=== PATIENT | male | born 1990 | race Two or more races ===

== ENCOUNTER 2019-09-27 14:36 | Emergency (ER) | payer SELFPAY ==
--- NOTE | 2019-09-27 15:34 | ER Document Report ---
ED Medical Screen (RME) - General Chief Complaint: Eye Pain Stated Complaint: EYE IRRITATION,HEADACHE Time Seen by Provider: 09/27/19 15:30 Mode of Arrival: Ambulatory Information source: Patient Notes: 28-year-old male presented to ED for complaint of redness pressure pain to the right eye. He states now he has a headache to the right side of his head. He states he tried to get into several eye doctors and he could not get in. He states the pain started yesterday. He is alert oriented respirations regular nonlabored speaking in full sentences. He does wear eye contacts and he took them out 2 days ago because he ran out of contacts so he has been wearing glasses for the since day before yesterday the eye pain started yesterday. 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 I have greeted and performed a rapid initial assessment of this patient. A comprehensive ED assessment and evaluation of the patient, analysis of test results and completion of medical decision making process will be conducted by an additional ED providers. Physical Exam - Vital signs Vitals: Temp Pulse Resp BP Pulse Ox 98.8 F 97 20 156/104 H 96 09/27/19 14:42 09/27/19 14:42 09/27/19 14:42 09/27/19 14:42 09/27/19 14:42 Course - Vital Signs Vital signs: Temp Pulse Resp BP Pulse Ox 98.8 F 97 20 156/104 H 96 09/27/19 14:42 09/27/19 14:42 09/27/19 14:42 09/27/19 14:42 09/27/19 14:42
[2019-09-27] MEDS ORDERED: TETRACAINE HCL 0.5% OPH SOLN 4 ML OS ONE (17:27)
--- NOTE | 2019-09-27 17:40 | ER Document Report ---
HPI - HPI Time Seen by Provider: 09/27/19 15:30 Pain Level: 4 Notes: Patient is a 28-year-old male with no significant past medical history presents complaining of having right eye irritation that began yesterday. Patient states that he has been waking up with matting of his eyes and drainage while noticing eye redness. Patient states that the worst of it was this morning. He was wearing his contacts prior and stopped wearing them because of the irritation. Patient states that he does have some light sensitivity and some mild pain to the right side of his head. 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 He does wear eye protection. Denies any fever, neck pain, changes in speech/mentation/hearing, URI, sore throat, chest pain, palpitations, syncope, cough, shortness of breath, wheeze, dyspnea, abdominal pain, nausea/vomiting/diarrhea, urinary retention, dysuria, hematuria, loss of control of bowel or bladder, numbness/tingling, saddle anesthesia, muscle paralysis/weakness, or rash. - ROS Systems Reviewed and Negative: Yes All other systems reviewed and negative - CONSTITUTIONAL Constitutional: DENIES: Fever, Chills - NEURO Neurology: REPORTS: Headache. DENIES: Weakness, Vision blurred, Dizzinesss / Vertigo - REPRODUCTIVE Reproductive: DENIES: : Past Medical History - General Information source: Patient - Social History Smoking Status: Never Smoker Chew tobacco use (# tins/day): No Frequency of alcohol use: Rare Drug Abuse: None Family History: Reviewed & Not Pertinent Patient has suicidal ideation: No Patient has homicidal ideation: No Vertical Provider Document - CONSTITUTIONAL Agree With Documented VS: Yes Notes: PHYSICAL EXAMINATION: GENERAL: Well-appearing, well-nourished and in no acute distress. A&Ox4 HEAD: Atraumatic, normocephalic. EYES: Pupils equal round and reactive to light, extraocular movements intact, sclera anicteric, Rt conjunctiva is injected with scant discharge. Non-tender to palp of the globe and eye itself. No surrounding erythema or swelling noted. Wood's lamp/flourescein: + small rt corneal ulcer noted at 11 o'clock position. No abrasion, laceration, or deysi sign noted. No obvious foreign body appreciated or rust ring. Tonometry: pressure of 18. ENT: Nares patent and without discharge. oropharynx clear without exudates. No tonsilar hypertrophy or erythema. Moist mucous membranes. No sinus tenderness. Uvula midline. No palatine shift. No airway compromise. No drooling or hoarseness. NECK: Normal range of motion, supple without lymphadenopathy. No rigidity/meningismus. LUNGS: Breath sounds clear to auscultation bilaterally and equal. No wheezes rales or rhonchi. HEART: Regular rate and rhythm without murmurs, rubs, gallops. Musculoskeletal: Ext b/l: FROM to passive/active. Strength 5+/5. Extremities: No cyanosis, clubbing, or edema b/l. Peripheral pulses 2+. Capillary refill less than 3 seconds. NEUROLOGICAL: Cranial nerves grossly intact. Normal speech, normal gait. PSYCH: Normal mood, normal affect. SKIN: Warm, Dry, normal turgor, no rashes or lesions noted. - INFECTION CONTROL TRAVEL OUTSIDE OF THE [place] IN LAST 30 DAYS: No Course - Re-evaluation Re-evalutation: 09/27/19 18:01 Patient is an afebrile, well-hydrated, 28-year-old male who presents to the emergency department with corneal ulcer rt eye. Vitals are acceptable without significant tachycardia, tachypnea, or hypoxia. PE is otherwise unremarkable. Tonometry wnl. See eye exam. Patient is nontoxic-appearing and is able to tolerate p.o. without difficulty. No labs or imaging warranted. Low suspicion for any retained corneal or lid foreign body, deep space infection including orbital cellulitis/abscess, acute glaucoma, penetrating globe injury, retinal detachment, meningitis, sepsis, fracture, compartment syndrome. I will send home with a prescription for cipro drogs to use as directed. Conservative haleigh sures otherwise for symptoms with proper handwashing. Recheck with your PCM in 3-5 days. Schedule follow-up with ophthalmology this week. Return to the ED with any worsening/concerning symptoms otherwise as reviewed in discharge. Patient is in agreement. - Vital Signs Vital signs: Temp Pulse Resp BP Pulse Ox 98.8 F 97 20 142/85 H 96 09/27/19 14:42 09/27/19 14:42 09/27/19 14:42 09/27/19 15:37 09/27/19 14:42 Procedures - Eye Procedure Right Eye Irrigated w/ Saline (ccs): 20 Alcaine Drops Administered: Yes - tetracaine Fluorescein applied: Right Discharge - Discharge Clinical Impression: Corneal ulcer, right Condition: Stable Disposition: HOME, SELF-CARE Instructions: Corneal Ulceration ([facility]) Additional Instructions: Keep eyes clean Avoid scratching/touching eyes Wash hands regularly Use eye drops as directed Throw away your contact lenses and do not use new ones for at least 2 weeks Maintain adequate fluid intake tylenol/ibuprofen as needed over the counter cold medication as needed for symptoms F/u: with your PCM in 2-3 days for a recheck Schedule an appointment with ophthalmology for further evaluation and management Return to the ED with any worsening symptoms and/or development of fever, headache, changes in vision, eye pain, worsening eye redness, redness around the eyes, purulent discharge, sore throat, facial swelling, neck pain/stiffness, chest pain, palpitations, syncope, shortness of breath, trouble breathing, abdominal pain, n/v/d, blood in stool/urine, dysuria, or other worsening symptoms that are concerning to you. Prescriptions: Ciprofloxacin HCl [Ciloxan 0.3% Oph Ointment 3.5 gm] 1 applic OP ASDIR #1 tube Forms: Elevated Blood Pressure Referrals: YARI CHINCHILLA MD [ACTIVE STAFF] - 09/29/19
[2019-09-27 18:16] VITALS: BP 151/92
== END 2019-09-27 18:21 | disposition home or self-care (01) ==
LOC: ER 14:36
DX: H16.001 Unspecified corneal ulcer, right eye (principal)
CPT/HCPCS: 99282; J3490

== ENCOUNTER 2019-09-28 21:50 | Emergency (ER) | payer SELFPAY ==
[2019-09-28] MEDS ORDERED: TETRACAINE HCL 0.5% OPH SOLN 4 ML OD ONE (22:53)
--- NOTE | 2019-09-28 22:54 | ER Document Report ---
ED Medical Screen (RME) - General Chief Complaint: Eye Injury Stated Complaint: REDNESS OF EYE,BLURRINESS Primary Care Provider: BENJY LOVE JR, MD [Primary Care Provider] - Follow up as needed Notes: Patient is a 28-year-old male with past medical history of morbid obesity was seen here recently and diagnosed with a right corneal abrasion placed on Cipro drops who returns today with a worsening right eye. He does report in the past that he had increased IOP in the right eye. States the eye is painful, decreased blurry vision and surrounded with redness. He is been using the drops as previously prescribed. Denies any blunt injury or trauma to the eye. TRAVEL OUTSIDE OF THE [place] IN LAST 30 DAYS: No - Related Data Allergies/Adverse Reactions: Penicillins Allergy (Unknown, Verified 09/28/19 22:45) Home Medications: CIPRO Physical Exam - Vital signs Vitals: Temp Pulse Resp BP Pulse Ox 99.5 F 110 H 20 185/76 H 96 09/28/19 22:05 09/28/19 22:05 09/28/19 22:05 09/28/19 22:05 09/28/19 22:05 Course - Vital Signs Vital signs: Temp Pulse Resp BP Pulse Ox 99.5 F 110 H 20 185/76 H 96 09/28/19 22:05 09/28/19 22:05 09/28/19 22:05 09/28/19 22:05 09/28/19 22:05 Doctor's Discharge - Discharge Referrals: BENJY LOVE JR, MD [Primary Care Provider] - Follow up as needed
[2019-09-29] MEDS ORDERED: KETOROLAC TROMETHAMINE 0.45% 4 DROP/0.4 ML DROPERETTE OD ONE (01:40)
[2019-09-29] MEDS ORDERED: KETOROLAC TROMETHAMINE 60 MG/2 ML SDV IM ONE (01:55)
--- NOTE | 2019-09-29 01:59 | ER Document Report ---
ED General - General Chief Complaint: Eye Injury Stated Complaint: REDNESS OF EYE,BLURRINESS Time Seen by Provider: 09/29/19 00:39 Primary Care Provider: BENJY LOVE JR, MD [ACTIVE STAFF] - Follow up as needed Notes: 28-year-old male presents emergency department complaining of right eye pain and blurry vision. Patient states that 2 days ago he tried new colored contacts that he ordered online and when he put them and they were somewhat painful and they ripped so he tried it again and when he woke up the next morning after having taken out his contacts his right eye was red and had crusting and discharge. Patient stated that it was quite painful and hurt worse with direct light. Patient was seen here yesterday, diagnosed with a corneal abrasion and treated with ciprofloxacin drops. Patient states that the drops burned when he put them in and his pain has gotten progressively worse. Patient states that now his vision is blurry as well and he feels like there is a smudge in his vision. He has not worn the contacts again. Denies any specific foreign body to the eye although he did have a foreign body sensation which has since resolved. Patient also complains of a right-sided temporal headache that he states feels worse when you touch it gently but feels better when you apply significant pressure to his right quaker. TRAVEL OUTSIDE OF THE [place] IN LAST 30 DAYS: No - Related Data Allergies/Adverse Reactions: Penicillins Allergy (Unknown, Verified 09/28/19 22:45) Home Medications: CIPRO Past Medical History - General Information source: Patient - Social History Smoking Status: Former Smoker Frequency of alcohol use: None Drug Abuse: None Family History: DM, Hypertension Patient has suicidal ideation: No Patient has homicidal ideation: No Review of Systems - Review of Systems Constitutional: No symptoms reported EENT: See HPI Cardiovascular: No symptoms reported Neurological/Psychological: See HPI, Headaches -: Yes All other systems reviewed and negative Physical Exam - Vital signs Vitals: Temp Pulse Resp BP Pulse Ox 99.5 F 110 H 20 185/76 H 96 09/28/19 22:05 09/28/19 22:05 09/28/19 22:05 09/28/19 22:05 09/28/19 22:05 Interpretation: Hypertensive, Tachycardic - Notes Notes: GENERAL: Alert, interacts well. Lying in the dark, appears uncomfortable. HEAD: Normocephalic, atraumatic. Tender palpation across the right quaker, temporal artery is not inflamed, there is no tenderness further back on his head, there is no vesicular rash, no evidence of shingles. EYES: Pupils equal, round and reactive to light, extraocular movements intact. Pain with light shined into either eye, the pain is only present in the right eye. Markedly injected conjunctiva bilaterally however right is greater than left, slit-lamp examination of the right eye does not reveal any foreign body, there is no fluorescein uptake, there is no cell and flare in the anterior chamber. There is no hyphema nor is there a hypopyon. No remaining corneal abrasion is noted. Intraocular pressures are 17 in both eyes. ENT: Oral mucosa moist, tongue midline. NECK: Full range of motion, supple, trachea midline. LUNGS: no respiratory distress. EXTREMITIES: Moves all 4 extremities spontaneously. No cyanosis. NEUROLOGICAL: Alert and oriented x3, normal speech, no facial droop. PSYCH: Normal mood, normal affect. SKIN: Warm, Dry, normal turgor, no rashes or lesions noted. Course - Re-evaluation Re-evalutation: 09/29/19 01:58 Given the fact that the patient is still having quite intense pain, it worsens with light and I no longer see a corneal abrasion I am concerned for several different things. Given the tenderness palpation over the temporal artery and concern for possible temporal arteritis, I will check ESR and CRP. The patient's age does make this quite unlikely. I am also concerned for possible scleritis, after the ESR and CRP back as well as the visual acuity I will discuss with Dr. Durham the shell machine operator on-call. Low suspicion for shingles although this could be an early presentation of shingles in the V1 distribution as he is having pain and vision trouble although there is no evidence of vesicular rash at this time and I did not see any dendrites on slit- lamp examination. 09/29/19 03:05 ESR and CRP are both elevated, visual acuity is relatively intact, please see nursing notes. I did discuss this with Dr. Durham, he will see the patient in his office later today. Agreeable to me starting him prednisone now at 50 mg/day. States we have 7 days from the time that we start the prednisone to get the temporal artery biopsy. He will follow-up as an outpatient. - Vital Signs Vital signs: Temp Pulse Resp BP Pulse Ox 99.5 F 110 H 20 185/76 H 96 09/28/19 22:05 09/28/19 22:05 09/28/19 22:05 09/28/19 22:05 09/28/19 22:05 - Laboratory Laboratory results interpreted by me: 09/29/19 09/29/19 02:03 02:03 ESR 30 H C-Reactive Protein 14.3 H Discharge - Discharge Clinical Impression: Acute right eye pain Condition: Stable Disposition: HOME, SELF-CARE Additional Instructions: I am concerned for several different things. There is a possibility that you have something called temporal arteritis. This can be a danger to your vision. I have started you on prednisone 50 mg once a day to take for the next [address] Durham agrees with my concern for temporal arteritis she will be referred for a biopsy of your temporal artery. You could also have something called scleritis which could also be a danger to your vision and can get better with steroids. Dr. Durham will be doing an examination later today to help determine exactly what is going on with your eye. Please take the prednisone as directed until another doctor either tells you to stop for until you run out. Please call Dr. Durham's office first thing in the morning, I spoke with him at 3 AM, he states that his office will see you later today Wednesday the . He would like you to call his office so they can tell you what time to come in. Please return to the emergency department for any new or concerning symptoms. Prescriptions: Prednisone [Deltasone 10 mg Tablet] 50 mg PO DAILY #40 tablet Referrals: CHRISTINA DURHAM DO [ACTIVE STAFF] - 09/29/19
[2019-09-29] MEDS ORDERED: PREDNISONE 10 MG TABLET PO ONE (03:05)
[2019-09-29 03:36] VITALS: BP 152/126
== END 2019-09-29 03:36 | disposition home or self-care (01) ==
LOC: ER 21:50
DX: H57.11 Ocular pain, right eye (principal); H53.8 Other visual disturbances; R51 Headache; Z88.0 Allergy status to penicillin
CPT/HCPCS: 99283; 96372; 36415; 85652; 86140; J1885; J7512; J3490